=== PATIENT | male | born 2000 | race Caucasian/White ===

== ENCOUNTER 2023-09-20 09:12 | Emergency (ER) | payer OTHER, BC ==
[2023-09-20 09:38] VITALS: RESP 18; TEMP 98.3
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
--- NOTE | 2023-09-20 10:05 | XR ---
EXAMINATION TYPE: XR chest 2V DATE OF EXAM: 09/20/2023 COMPARISON: NONE TECHNIQUE: PA and lateral views submitted. HISTORY: Pain FINDINGS: The lungs are clear and there is no pneumothorax, pleural effusion, or focal pneumonia. Heart size normal and no overt failure. Osseous structures demonstrate hypertrophic and degenerative changes of the spine. IMPRESSION: 1. No acute process.
[2023-09-20 10:45] VITALS: BP 151/73; PULSE 71
== END 2023-09-20 10:33 | disposition home or self-care (01) ==
LOC: EC 09:12
DX: M54.2 Cervicalgia (principal); Z88.8 Allergy status to other drugs, medicaments and biological substances; W22.8XXA Striking against or struck by other objects, initial encounter
CPT/HCPCS: 70450; 71046; 72125; 99285